=== PATIENT | male | born 1940 | race American Indian/Alaskan Native ===

== ENCOUNTER 2019-03-16 09:32 | Inpatient (IN) | payer MEDICARE ==
[~2019-03-16] VITALS: Ht 172.7 cm; Wt 75.0 kg
[~2019-03-16 09:32] MED LIST: CARV6.2553 PO; CHOL10002 PO; DULA1.5P INJ; LISI-604 PO; METF-438 PO; ROSU5TAB PO; SPIR25TA5 PO; ZOLP10TA5 PO
[2019-03-16 10:25] LABS: BASOPHILS # (AUTO) 0.1 X10'3 (0-0.2); BASOPHILS % (AUTO) 0.8 % (0-1); EOSINOPHILS # (AUTO) 0.1 X10'3 (0-0.9); EOSINOPHILS % (AUTO) 0.6 % (0-6); HEMATOCRIT 35.5 % (42.0-52.0); HEMOGLOBIN 11.8 g/dl (14.0-17.9); LYMPHOCYTES # (AUTO) 5.9 X10'3 (1.1-4.8); LYMPHOCYTES % (AUTO) 42.1 % (21-51); MEAN CORPUSCULAR HEMOGLOBIN 30.1 PG (27.0-31.0); MEAN CORPUSCULAR HGB CONC 33.1 g/dL (33.0-36.5); MEAN CORPUSCULAR VOLUME 90.9 FL (78-98); MEAN PLATELET VOLUME 6.9 FL (7.4-10.4); MONOCYTES # (AUTO) 1.5 X10'3 (0-0.9); MONOCYTES % (AUTO) 10.4 % (2-12); NEUTROPHILS # (AUTO) 6.5 X10'3 (1.8-7.7); NEUTROPHILS % (AUTO) 46.1 % (42-75); PLATELET COUNT 338 X10'3 (140-440); RED BLOOD COUNT 3.91 X10'6 (4.70-6.10); RED CELL DISTRIBUTION WIDTH 14.5 % (11.5-14.5); WHITE BLOOD COUNT 14.1 X10'3 (4.5-11.0)
[2019-03-16 10:27] LABS: PARTIAL THROMBOPLASTIN TIME 25 SECONDS (22-32)
[2019-03-16 10:29] LABS: ALANINE AMINOTRANSFERASE 25 U/L (12-78); ALBUMIN 2.7 G/DL (3.4-5.0); ALBUMIN/GLOBULIN RATIO 0.5 (1.1-1.5); ALKALINE PHOSPHATASE 108 IU/L (46-116); ASPARTATE AMINO TRANSFERASE 16 U/L (10-37); BILIRUBIN,TOTAL 0.7 MG/DL (0.1-1.0); BLOOD UREA NITROGEN 33 MG/DL (7-18); BUN/CREATININE RATIO 23.4 (5.4-32.0); CALCIUM 8.7 MG/DL (8.5-10.1); CHLORIDE 99 MMOL/L (99-107); CREATININE 1.41 MG/DL (0.60-1.10); GLUCOSE 277 MG/DL (70-104); POTASSIUM 4.8 MMOL/L (3.5-5.1); TOTAL CARBON DIOXIDE 21.4 MMOL/L (24-32); TOTAL PROTEIN 7.9 G/DL (6.4-8.2); eGFR 48 ML/MIN
[2019-03-16 10:31] LABS: ANION GAP 15 (8-16); SODIUM 135 MMOL/L (135-145)
[2019-03-16] MEDS ORDERED: iohexol 350MG/ML 100ml bottle IV ONE (10:45)
--- NOTE | 2019-03-16 12:00 | NUR ---
I CALLED LAB TO NOTIFY THEM THAT PT 0HR TROPONIN WAS NOT RESULTED 2 HOURS AFTER COLLECTION. LAB IS CURRENTLY WORKING ON IT.
[2019-03-16] MEDS ORDERED: CefTRIAXone 2gm/D5W 50ml 50 ML IV ONE (12:10)
--- NOTE | 2019-03-16 12:25 | NUR ---
Pt and spouse are aware of the need for additional lab work then antibiotic infusion.
[2019-03-16] MEDS ORDERED: morphine 2 MG/ML inj. syringe IV PRN ×2 (12:30)
[2019-03-16] MEDS ORDERED: glucagon, human recombinant 1mg kit SUBCUT PRN (12:30)
[2019-03-16] MEDS ORDERED: dextrose ORAL solution 15 GM/59 ML bottle PO PRN ×2 (12:30)
[2019-03-16] MEDS ORDERED: MESSAGE TO PHARMACY PO ONE (12:30)
[2019-03-16] MEDS ORDERED: dextrose 50%-water 50ml dispensing syringe IV PRN ×2 (12:30)
[2019-03-16] MEDS ORDERED: acetaminophen 325mg tablet PO PRN ×2 (12:30)
[2019-03-16] MEDS ORDERED: mag hydrox/Alum hydrox/simeth 30ml oral suspension PO PRN (12:30)
[2019-03-16] MEDS ORDERED: HYDROcodone/acetaminophen 5mg/325mg tablet PO PRN (12:30)
[2019-03-16] MEDS ORDERED: magnesium hydroxide 30ml (MOM) UD suspension PO PRN (12:30)
[2019-03-16] MEDS ORDERED: ondansetron/PF 4mg/2ml inj IV PRN (12:30)
[2019-03-16 12:37] LABS: D-DIMER > 35.20 MG/L FEU (0-0.50)
[2019-03-16 12:53] LABS: MAGNESIUM 2.2 MG/DL (1.5-2.4)
--- NOTE | 2019-03-16 12:54 | NUR ---
Phoning the Hospitalist regarding the elevated troponin. Second level has been collected but not resulted. He reports he reports he will assess the trending levels at q6 hour intervals. No new orders at this time.
[2019-03-16 13:07] LABS: HEMOGLOBIN A1C 7.5 % (4.5-6.2)
--- NOTE | 2019-03-16 13:08 | NUR ---
Pt's fingerstick completed, 288 prior to lunch tray. Pt assisted to sit on the side of the bed and his spouse is assisting him with eating at this time. Pt's antibiotic infusion completed.
[2019-03-16] MEDS ORDERED: enoxaparin 80mg/0.8ml syringe SUBCUT ONE (14:10)
--- NOTE | 2019-03-16 14:32 | NUR ---
Pt's spouse to obtain a medication list later today or tomorrow to update medication reconcilliation, unable to complete in the ED.
[2019-03-16] MEDS ORDERED: zolpidem 5mg tablet PO PRN (14:55)
[2019-03-16 15:00] VITALS: BP 108/51
--- NOTE | 2019-03-16 17:42 | NUR ---
Patient got up to bathroom to have diarrhea. Cautioned to call us for help as he is weak. Unable to catch him before specimen flushed. CT show distended bladder, so bladder scan done. Patient states he has not been voiding much but does not feel full. Bladder scan shows 313 cc= pt given urinal to try and void.
--- NOTE | 2019-03-16 18:16 | NUR ---
Problems reprioritized. Patient report given, questions answered & plan of care reviewed with MEGAN Grace.
--- NOTE | 2019-03-16 18:26 | NUR ---
Patient in room PCU 3021. I have received report from Kait GUZMAN and had the opportunity to ask questions and assume patient care.
[2019-03-16 19:00] VITALS: BP 119/72
[2019-03-16] MEDS: insulin Lispro (HumaLOG) vial - multi-dose SQ SCH (19:41)
[2019-03-16] MEDS ORDERED: atorvastatin 20mg tablet PO SCH (21:00)
[2019-03-16] MEDS ORDERED: insulin glargine (Lantus) pen - multi-dose SQ SCH (21:00)
[2019-03-16] MEDS: carvedilol 6.25mg tablet PO SCH (21:02)
[2019-03-16] MEDS: furosemide 20 MG/2 ML vial IV SCH (21:02)
[2019-03-16 22:00] VITALS: BP_SYST 127; BP_SYST 93; BP_DIAS 54; BP_DIAS 60
--- NOTE | 2019-03-16 22:01 | NUR ---
Asked patient if he has voided yet since he had not since he got up to this floor and he stated that he has not gone since he woke up this morning. He denies having any urge to go however and states that this is normal for him and he just does not pee very often in general. He was bladder scanned at this time and highest reading was 366mls. Offered patient the urinal and encouraged him to try to void. After a few minutes he was able to go 175mls.
[2019-03-17 02:00] VITALS: BP 107/67
[2019-03-17 05:24] LABS: ALBUMIN 2.2 G/DL (3.4-5.0); ANION GAP 10 (8-16); BLOOD UREA NITROGEN 42 MG/DL (7-18); BUN/CREATININE RATIO 27.8 (5.4-32.0); CALCIUM 8.2 MG/DL (8.5-10.1); CHLORIDE 102 MMOL/L (99-107); CREATININE 1.51 MG/DL (0.60-1.10); GLUCOSE 188 MG/DL (70-104); POTASSIUM 4.3 MMOL/L (3.5-5.1); SODIUM 136 MMOL/L (135-145); TOTAL CARBON DIOXIDE 23.7 MMOL/L (24-32); eGFR 45 ML/MIN
[2019-03-17 05:25] LABS: BASOPHILS # (AUTO) 0.1 X10'3 (0-0.2); BASOPHILS % (AUTO) 0.7 % (0-1); EOSINOPHILS # (AUTO) 0.1 X10'3 (0-0.9); EOSINOPHILS % (AUTO) 0.6 % (0-6); HEMATOCRIT 31.1 % (42.0-52.0); HEMOGLOBIN 10.3 g/dl (14.0-17.9); LYMPHOCYTES # (AUTO) 4.5 X10'3 (1.1-4.8); LYMPHOCYTES % (AUTO) 38.9 % (21-51); MEAN CORPUSCULAR HEMOGLOBIN 30.4 PG (27.0-31.0); MEAN CORPUSCULAR HGB CONC 33.2 g/dL (33.0-36.5); MEAN CORPUSCULAR VOLUME 91.5 FL (78-98); MEAN PLATELET VOLUME 7.1 FL (7.4-10.4); MONOCYTES # (AUTO) 1.3 X10'3 (0-0.9); MONOCYTES % (AUTO) 11.3 % (2-12); NEUTROPHILS # (AUTO) 5.6 X10'3 (1.8-7.7); NEUTROPHILS % (AUTO) 48.5 % (42-75); PLATELET COUNT 294 X10'3 (140-440); RED CELL DISTRIBUTION WIDTH 14.4 % (11.5-14.5); WHITE BLOOD COUNT 11.5 X10'3 (4.5-11.0)
--- NOTE | 2019-03-17 05:47 | NUR ---
[place] documentation: I have reviewed and agree with all interventions, assessments performed and documented by Samantha GUZMAN. [place] Medication Administration: For this medication-pass time frame, all medication were reviewed, dispensed, administered and documented per hospital policy by Samantha GUZMAN.
[2019-03-17 06:00] VITALS: BP_SYST 135; BP_SYST 96; BP_DIAS 53; BP_DIAS 59
--- NOTE | 2019-03-17 06:10 | NUR ---
Patient in room PCU 3021. I have received report from MEGAN Grace and had the opportunity to ask questions and assume patient care.
--- NOTE | 2019-03-17 06:12 | NUR ---
Problems reprioritized. Patient report given, questions answered & plan of care reviewed with Kait GUZMAN.
[2019-03-17] MEDS: furosemide 20 MG/2 ML vial IV SCH (07:28)
[2019-03-17] MEDS: carvedilol 6.25mg tablet PO SCH (07:28)
[2019-03-17] MEDS: enoxaparin 40mg/0.4ml syringe SUBCUT SCH ×2 (07:29→07:36)
[2019-03-17] MEDS ORDERED: enoxaparin 30mg/0.3ml syringe SUBCUT SCH ×2 (08:00)
[2019-03-17] MEDS ORDERED: vitamin D (cholecalciferol) 1,000 unit tablet PO SCH (08:00)
[2019-03-17] MEDS ORDERED: enoxaparin 40mg/0.4ml syringe SQ SCH (08:00)
[2019-03-17 08:17] LABS: TROPONIN I 0.74 NG/ML (0.0-0.05)
--- NOTE | 2019-03-17 08:22 | NUR ---
Page to Dr. Brianne Burch, RM 3026 Critical Troponin - 0.74 Thanks, Kait Ellie X [phone]
[2019-03-17] MEDS: insulin Lispro (HumaLOG) vial - multi-dose SQ SCH (08:58)
[2019-03-17 11:00] VITALS: BP 97/70
[2019-03-17 11:06] LABS: C DIFF ANTIGEN NEGATIVE (NEGATIVE); C DIFF SPECIMEN=DIARRHEA? ACCEPTABLE; C DIFFICILE TOXINS A&B NEGATIVE (Neg)
[2019-03-17] MEDS ORDERED: APIX5TAB3 PO (11:23)
[2019-03-17] MEDS ORDERED: FURO-150 PO (11:23)
--- NOTE | 2019-03-17 11:25 | NUR ---
Dr. Decker in to see patient. Patient is adamant that he wants to go home. Physician explained the dangers of doing so and that he felt he was not ready. Patient insists on going home "I don't care if I , I can't stay here". Patient advised that he would have to sign out AMA.
--- NOTE | 2019-03-17 11:45 | NUR ---
Again discussed with patient the dangers of going home at this time with his diagnoses, including . Patient states he understands insists he is going home. Signed AMA form.
--- NOTE | 2019-03-17 12:00 | NUR ---
Patient refused fingerstick. Addendum: 03/17/19 at 1304 by Kait Jimenez RN Amended: Links added.
--- NOTE | 2019-03-17 12:10 | NUR ---
Patient has refused to have his blood sugars checked and is also refusing lunch at this time. Will inform the patients nurse, Kait.
--- NOTE | 2019-03-17 14:06 | NUR ---
Reported off to MEGAN Sparrow. Patient awaiting to return with clothing.
--- NOTE | 2019-03-17 14:22 | NUR ---
DM consult, A1c is 7.5, patient given written DM education handout with verbal review and referral to outpatient DM education class on sunday. Addendum: 03/17/19 at [address] Amended: Links added.
[2019-03-18] MEDS ORDERED: lisinopril 2.5mg tablet PO SCH (08:00)
[2019-03-18] MEDS ORDERED: spironolactone 25 MG tablet PO SCH (08:30)
== END 2019-03-17 14:47 | disposition left against medical advice (07) | DRG 280 ==
LOC: ER 09:33 → PCU 3S 14:38
PROVIDERS: ADMIT Internal Medicine; ATTEND Internal Medicine
DX: I82.401 Acute embolism and thrombosis of unspecified deep veins of right lower extremity (principal); I50.23 Acute on chronic systolic (congestive) heart failure; I21.A1 Myocardial infarction type 2; E43 Unspecified severe protein-calorie malnutrition; I13.0 Hypertensive heart and chronic kidney disease with heart failure and stage 1 through stage 4 chronic kidney disease, or unspecified chronic kidney disease; I50.9 Heart failure, unspecified; Z68.25 Body mass index [BMI] 25.0-25.9, adult; Z53.21 Procedure and treatment not carried out due to patient leaving prior to being seen by health care provider; E78.5 Hyperlipidemia, unspecified; K52.9 Noninfective gastroenteritis and colitis, unspecified; N18.3 Chronic kidney disease, stage 3 (moderate); D64.9 Anemia, unspecified; E11.22 Type 2 diabetes mellitus with diabetic chronic kidney disease; I25.10 Atherosclerotic heart disease of native coronary artery without angina pectoris; I25.2 Old myocardial infarction; Z83.3 Family history of diabetes mellitus; Z82.49 Family history of ischemic heart disease and other diseases of the circulatory system; Z95.1 Presence of aortocoronary bypass graft; Z87.891 Personal history of nicotine dependence
CPT/HCPCS: 36415; 71045; 71250; 74176; 80048; 80053; 82948; 83036; 83605; 83735; 83880; 84145; 84484; 85025; 85379; 85610; 85730; 87040; 87045; 87046; 87081; 87324; 87449; 89055; 93005; 93306; 93970; 96365; 96372; 99285; G0378; J0696; J1650; J1815; J1940; Q9967

== ENCOUNTER 2019-03-18 16:50 | Inpatient (IN) | payer MEDICARE ==
[~2019-03-18] VITALS: Ht 170.2 cm; Wt 75.7 kg
[~2019-03-18 16:50] MED LIST changes: +APIX5TAB3 PO; +FURO-150 PO
[2019-03-18] MEDS ORDERED: normal saline 1000ML IV soln IV ONE (17:00)
[2019-03-18 17:19] LABS: BASOPHILS % (AUTO) 0.2 % (0-1); EOSINOPHILS % (AUTO) 0 % (0-6); HEMATOCRIT 36.4 % (42.0-52.0); HEMOGLOBIN 11.8 g/dl (14.0-17.9); LYMPHOCYTES # (AUTO) 1.7 X10'3 (1.1-4.8); LYMPHOCYTES % (AUTO) 16.9 % (21-51); MEAN CORPUSCULAR HEMOGLOBIN 29.8 PG (27.0-31.0); MEAN CORPUSCULAR HGB CONC 32.4 g/dL (33.0-36.5); MEAN CORPUSCULAR VOLUME 91.9 FL (78-98); MEAN PLATELET VOLUME 7.2 FL (7.4-10.4); MONOCYTES # (AUTO) 0.7 X10'3 (0-0.9); MONOCYTES % (AUTO) 7.2 % (2-12); NEUTROPHILS # (AUTO) 7.5 X10'3 (1.8-7.7); NEUTROPHILS % (AUTO) 75.7 % (42-75); PLATELET COUNT 320 X10'3 (140-440); RED BLOOD COUNT 3.96 X10'6 (4.70-6.10); RED CELL DISTRIBUTION WIDTH 14.6 % (11.5-14.5)
[2019-03-18] MEDS ORDERED: midazolam 100mg in NS 100ml 100 ML IV PRN ×2 (17:20→18:57)
--- NOTE | 2019-03-18 17:30 | NUR ---
PT HAD X-RAY FOR INTUBATION PLACEMENT CONFIRMATION AND WAS READ BY MD GALDAMEZ AND VERIFIED IN PLACE. PT THEN TAKEN TO CT WITH MEGAN LIZARRAGA AND RT.
[2019-03-18 17:31] LABS: PARTIAL THROMBOPLASTIN TIME 26 SECONDS (22-32)
[2019-03-18 17:32] LABS: AMMONIA < 10 UMOL/L (11-32)
[2019-03-18 17:35] LABS: ALANINE AMINOTRANSFERASE 73 U/L (12-78); ALBUMIN 2.5 G/DL (3.4-5.0); ALBUMIN/GLOBULIN RATIO 0.5 (1.1-1.5); ALKALINE PHOSPHATASE 157 IU/L (46-116); ANION GAP 19 (8-16); ASPARTATE AMINO TRANSFERASE 75 U/L (10-37); BILIRUBIN,TOTAL 0.8 MG/DL (0.1-1.0); BLOOD UREA NITROGEN 60 MG/DL (7-18); BUN/CREATININE RATIO 34.7 (5.4-32.0); CALCIUM 8.3 MG/DL (8.5-10.1); CHLORIDE 99 MMOL/L (99-107); CREATININE 1.73 MG/DL (0.60-1.10); GLUCOSE 432 MG/DL (70-104); POTASSIUM 4.7 MMOL/L (3.5-5.1); SODIUM 134 MMOL/L (135-145); TOTAL CARBON DIOXIDE 16.1 MMOL/L (24-32); TOTAL PROTEIN 7.4 G/DL (6.4-8.2); eGFR 38 ML/MIN
[2019-03-18 17:36] LABS: LACTIC SEPSIS 3.4 MMOL/L (0.4-2.0)
[2019-03-18 17:38] LABS: ETHANOL < 0.010 GM/DL (0.0-0.010)
[2019-03-18 17:42] LABS: TROPONIN I 3.32 NG/ML (0.0-0.05)
[2019-03-18] MEDS ORDERED: fentaNYL/PF 50MCG/1 ML 2ML syringe ONE (17:48)
[2019-03-18] MEDS ORDERED: midazolam 2 mg/2 ml injection ONE (17:48)
[2019-03-18] MEDS ORDERED: iohexol 350 MG/1 ML 200ml bottle ONE (17:48)
[2019-03-18] MEDS ORDERED: LIDOcaine 1% (10mg/ml)w/preservative injection 20ml MDV ONE (17:48)
[2019-03-18] MEDS ORDERED: heparin 1,000unit/ml 10ml vial 10 ML ONE (17:48)
[2019-03-18] MEDS: FENTANYL-0.9 % NACL/PF 100 ML IV PRN (17:53)
--- NOTE | 2019-03-18 17:54 | NUR ---
RECEIVED VO THAT PT CLEARED OF CT AND INSTRUCTED TO ADMINISTER HEPARIN BOLUS PER CARDIAC PROTOCOL BY DR. GALDAMEZ. ARVIND HIGUERA CHECKED WITH MEGAN LIZARRAGA AT [facility] AND PT BOLUSED WITH 4,OOO UNITS HEPARIN IV. HEPARIN DRIP WAS NOT INITATED PT THEN TAKEN BY GYROSCOPIC INSTRUMENT TESTER FOR PROCEEDURE BUT HEPARIN BAG AND TUBING SENT UP WITH PT, VERCED AND FENTANYL DRIP INFUSING. PTS WAS GIVEN PTS UPPER DENTURE (PT WITHOUT BOTTOM PLATE) AND GIVEN PTS CLOTHING. FAMILY WAS UPDATED ON PROCEEDURES AND WALKED UP TO WAITING ROOM ON FLOOR 2.
[2019-03-18] MEDS ORDERED: iohexol 350 MG/ML 50ML vial IV ONE (18:22)
[2019-03-18] MEDS ORDERED: FENTANYL-0.9 % NACL/PF 100 ML IV PRN (18:57)
[2019-03-18 19:00] VITALS: BP 104/63
[2019-03-18] MEDS ORDERED: potassium CL 10mEq/100ml bag 100 ML IV PRN ×2 (19:00)
[2019-03-18] MEDS ORDERED: midazolam 2 mg/2 ml injection IV ONE (19:00)
[2019-03-18] MEDS ORDERED: acetaminophen 325mg tablet PO PRN ×2 (19:00)
[2019-03-18] MEDS ORDERED: potassium Cl 20 mEq SR tablet PO PRN ×2 (19:00)
[2019-03-18] MEDS ORDERED: potassium Cl 20mEq/100mL bag 100 ML IV PRN ×2 (19:00)
[2019-03-18] MEDS ORDERED: ipratropium/albuterol 3ml nebule NEB PRN (19:00)
[2019-03-18] MEDS ORDERED: fentaNYL/PF 50MCG/1 ML 2ML syringe IV PRN (19:00)
[2019-03-18] MEDS ORDERED: ondansetron/PF 4mg/2ml inj IV PRN (19:00)
[2019-03-18] MEDS ORDERED: glucagon, human recombinant 1mg kit SUBCUT PRN (19:10)
[2019-03-18] MEDS ORDERED: dextrose 50%-water 50ml dispensing syringe IV PRN ×2 (19:10)
[2019-03-18] MEDS ORDERED: MESSAGE TO PHARMACY PO ONE (19:10)
[2019-03-18] MEDS ORDERED: dextrose ORAL solution 15 GM/59 ML bottle PO PRN ×2 (19:10)
[2019-03-18 19:11] LABS: ABG BASE EXCESS -14.6 mmol/L (-2.0-3.0); ABG HCO3 14.3 mmol/L (22.0-26.0); ABG OXYGEN SATURATION 86.7 % (95-98); ABG PCO2 (T) 45.4 mmHg (35.0-45.0); ABG PH (T) 7.116 (7.350-7.450); ABG PO2 (T) 73.3 mmHg (83-108); ALLEN'S TEST Positive; FCOHb 0.6 % (0.5-1.5); FMetHb 0.2 % (0.3-1.12); MINUTE VOLUME 8 L/min; PATIENT TEMPERATURE 36.9; PEEP 5 cm H2O; RESPIRATORY RATE 16 b/min; RESPIRATORY RATE (OBSERVED) 16 b/min; TIDAL VOLUME 500 mL; TOTAL HEMOGLOBIN 12.4 G/dl (14.0-17.9)
--- NOTE | 2019-03-18 19:15 | NUR ---
Patient in room CICU 2010. I have received report from TYING IN MACHINE OPERATOR and had the opportunity to ask questions and assume patient care. Patient came from computer lab aide in CICU bed with computer lab aide crew at bedside. Instructed that Noodle Catalyst Maker is to take over care of patient. Connected patient to CICU monitors and assessed patient. Dr Rodriguez at bedside to assess patient and place lines. New orders received.
[2019-03-18] MEDS ORDERED: acetaminophen 325mg/10.15ml oral unit dose solution OGT PRN (19:45)
[2019-03-18] MEDS ORDERED: dextrose ORAL solution 15 GM/59 ML bottle OGT PRN ×2 (19:47)
[2019-03-18] MEDS ORDERED: potassium Cl 20 mEq SR tablet OGT PRN ×2 (19:48→19:49)
[2019-03-18 20:00] VITALS: BP 107/64
[2019-03-18] MEDS ORDERED: apixaban 5mg tablet PO SCH (20:00)
[2019-03-18] MEDS ORDERED: docusate sod 100mg capsule PO SCH (20:00)
[2019-03-18] MEDS: ipratropium/albuterol 3ml nebule NEB SCH ×2 (20:13→23:19)
[2019-03-18 20:31] LABS: OXYGEN SATURATION (MIXED VEN) 48.6 % (60-80); PO2 MIXED VENOUS (TEMP COR) 36.3 mmHg (35-46)
[2019-03-18] MEDS: DOBUTamine-DoBUTrex 500mg/D5W 250 ML IV SCH (20:37)
[2019-03-18] MEDS: docusate sodium 100mg/10ml UD cup OGT SCH (20:46)
[2019-03-18] MEDS: famotidine/PF 10 mg/ml inj IV SCH (20:46)
[2019-03-18] MEDS: normal saline 1000ml 1,000 ML IV SCH (20:48)
[2019-03-18] MEDS: apixaban 5mg tablet OGT SCH (20:50)
[2019-03-18] MEDS: vancomycin/NS 1 GM ADD-VANTAGE 250 ML IV SCH (20:59)
[2019-03-18 21:00] VITALS: BP 108/69
[2019-03-18] MEDS ORDERED: atorvastatin 20mg tablet PO SCH (21:00)
[2019-03-18] MEDS: insulin Lispro (HumaLOG) vial - multi-dose SQ SCH (21:30)
[2019-03-18] MEDS: insulin glargine (Lantus) pen - multi-dose SQ SCH (21:32)
[2019-03-18 22:00] VITALS: BP 98/61
[2019-03-18 22:16] LABS: PO2 MIXED VENOUS (TEMP COR) 44.5 mmHg (35-46)
[2019-03-18 22:47] LABS: CLARITY,URINE CLEAR (Clear); COLOR,URINE YELLOW (Yellow); GLUCOSE, URINE >=1000 mg/dl (Neg); KETONES,URINE NEGATIVE (Neg); LEUKOCYTE ESTERASE ,URINE NEGATIVE (Neg); NITRITES, URINE NEGATIVE (Neg); OCCULT BLOOD,URINE MODERATE (Neg); PROTEIN,URINE TRACE mg/dl (Neg)
[2019-03-18 22:52] LABS: SODIUM,URINE RANDOM < 15 MEQ/L; UA COLLECTION TYPE FOLEY CATH
[2019-03-18 22:55] LABS: URINE AMPHETAMINE SCREEN NEGATIVE (Neg); URINE BARBITUATE SCREEN NEGATIVE (Neg); URINE BENZODIAZEPINES SCREEN POSITIVE (Neg); URINE CANNABINOID SCREEN NEGATIVE (Neg); URINE COCAINE SCREEN NEGATIVE (Neg); URINE METHADONE SCREEN NEGATIVE (Neg); URINE OPIATE SCREEN NEGATIVE (Neg); URINE PHENCYCLIDINE SCREEN NEGATIVE (Neg)
[2019-03-18 22:57] LABS: BACTERIA,URINE FEW /HPF (Neg); RBC,URINE 0-2 /HPF (0-2); SQUAMOUS EPITHELIAL CELL,UR FEW /LPF (FEW); WBC,URINE 0-4 /HPF (0-4)
[2019-03-18 23:00] VITALS: BP 84/51
[2019-03-18 23:13] LABS: UA EOSINOPHILS NO EOS /HPF
[2019-03-19] VITALS (24 sets, daily range): BP systolic 78–93; BP diastolic 50–62
[2019-03-19] MEDS ORDERED: cefepime 1GM in D5W 50mL 50 ML IV SCH
[2019-03-19] MEDS ORDERED: normal saline 250ml IV soln 250 ML IV ONE (00:40)
[2019-03-19] MEDS: NORepinephrine 8mg/ 250ml NS 250 ML IV SCH ×2 (01:45→22:58)
[2019-03-19] MEDS: insulin Lispro (HumaLOG) vial - multi-dose SQ SCH ×2 (01:48→08:27)
[2019-03-19 02:26] LABS: BASOPHILS % (AUTO) 0.1 % (0-1); EOSINOPHILS % (AUTO) 0 % (0-6); HEMATOCRIT 31.2 % (42.0-52.0); HEMOGLOBIN 9.9 g/dl (14.0-17.9); LYMPHOCYTES # (AUTO) 2.2 X10'3 (1.1-4.8); MEAN CORPUSCULAR HEMOGLOBIN 29.6 PG (27.0-31.0); MEAN CORPUSCULAR HGB CONC 31.8 g/dL (33.0-36.5); MEAN CORPUSCULAR VOLUME 93.1 FL (78-98); MEAN PLATELET VOLUME 7.2 FL (7.4-10.4); MONOCYTES # (AUTO) 0.9 X10'3 (0-0.9); MONOCYTES % (AUTO) 8.1 % (2-12); NEUTROPHILS # (AUTO) 8.5 X10'3 (1.8-7.7); NEUTROPHILS % (AUTO) 72.8 % (42-75); PLATELET COUNT 251 X10'3 (140-440); RED BLOOD COUNT 3.35 X10'6 (4.70-6.10); RED CELL DISTRIBUTION WIDTH 14.7 % (11.5-14.5); WHITE BLOOD COUNT 11.7 X10'3 (4.5-11.0)
[2019-03-19] MEDS: ipratropium/albuterol 3ml nebule NEB SCH ×6 (02:41→23:26)
[2019-03-19 02:44] LABS: ALANINE AMINOTRANSFERASE 621 U/L (12-78); ALBUMIN 1.9 G/DL (3.4-5.0); ALBUMIN/GLOBULIN RATIO 0.5 (1.1-1.5); ALKALINE PHOSPHATASE 129 IU/L (46-116); ANION GAP 12 (8-16); ASPARTATE AMINO TRANSFERASE 793 U/L (10-37); BILIRUBIN,TOTAL 0.5 MG/DL (0.1-1.0); BLOOD UREA NITROGEN 65 MG/DL (7-18); BUN/CREATININE RATIO 32.3 (5.4-32.0); CALCIUM 7.3 MG/DL (8.5-10.1); CHLORIDE 107 MMOL/L (99-107); CREATININE 2.01 MG/DL (0.60-1.10); GLUCOSE 357 MG/DL (70-104); MAGNESIUM 2.6 MG/DL (1.5-2.4); PHOSPHORUS 6.6 MG/DL (2.3-4.5); POTASSIUM 4.3 MMOL/L (3.5-5.1); SODIUM 139 MMOL/L (135-145); TOTAL CARBON DIOXIDE 20.5 MMOL/L (24-32); eGFR 32 ML/MIN
[2019-03-19 02:50] LABS: ABG BASE EXCESS -9.2 mmol/L (-2.0-3.0); ABG HCO3 16.1 mmol/L (22.0-26.0); ABG OXYGEN SATURATION 99.1 % (95-98); ABG PCO2 (T) 32.8 mmHg (35.0-45.0); ABG PH (T) 7.309 (7.350-7.450); ABG PO2 (T) 187.8 mmHg (83-108); ALLEN'S TEST Positive; FCOHb 0.2 % (0.5-1.5); FMetHb 0.1 % (0.3-1.12); FO2Hb 98.8 % (94-100); MINUTE VOLUME 12 L/min; PATIENT TEMPERATURE 36.9; PEEP 5 cm H2O; RESPIRATORY RATE 20 b/min; RESPIRATORY RATE (OBSERVED) 24 b/min; TIDAL VOLUME 400 mL; TOTAL HEMOGLOBIN 11.3 G/dl (14.0-17.9)
--- NOTE | 2019-03-19 06:38 | NUR ---
Patient in room CICU 2010. I have received report from MEGAN Granados and had the opportunity to ask questions and assume patient care.
[2019-03-19] MEDS: famotidine/PF 10 mg/ml inj IV SCH ×2 (07:56→20:25)
[2019-03-19] MEDS: cefepime 1GM/NS ADD-VANTAGE 100 ML IV SCH ×3 (07:56→23:54)
[2019-03-19] MEDS: docusate sodium 100mg/10ml UD cup OGT SCH ×2 (07:56→20:25)
[2019-03-19] MEDS: apixaban 5mg tablet OGT SCH ×2 (07:57→20:25)
[2019-03-19] MEDS: atorvastatin 20mg tablet OGT SCH (07:57)
[2019-03-19] MEDS ORDERED: vitamin D (cholecalciferol) 1,000 unit tablet PO SCH (08:00)
[2019-03-19] MEDS ORDERED: apixaban 5mg tablet PO SCH (08:00)
[2019-03-19] MEDS: lactobacillus rhamnosus 10,000 MMU CELLS/CAPSULE PO SCH ×2 (08:02→20:25)
[2019-03-19] MEDS: normal saline 1000ml 1,000 ML IV SCH ×2 (08:17→20:59)
--- NOTE | 2019-03-19 11:02 | NUR ---
Tube feeding consult received. Patient is intubated and sedated presenting with respiratory arrest and ST elevation VA. Per H&P patient has pulmonary infiltrates. left AMA yesterday. Pt reports 35-40 lb weight loss over three months accompanied with diarrhea and increasing weakness. Last documented weight from two years ago is consistent with patient's current weight. No diarrhea today. Will continue to monitor. Recommend: 1. Continuous tube feeding via OG tube with Vital AF at goal rate of 75 ml/hr will provide total volume of 1800 ml, 2160 cals, 135 g, 1460 ml. Start at 20 ml/hr and advance by 20 ml q 8 hours to goal. 2. Prealbumin q Sunday and 3. Daily weights 4. Additional water flush 130 ml q 4 hours 5. Continue bowel care 6. When extubated advance diet as medically indicated to carb controlled, heart healthy Addendum: 03/19/19 at [address] Amended: Links added.
[2019-03-19] MEDS ORDERED: insulin regular, human vial - multi-dose SQ SCH (12:15)
[2019-03-19] MEDS: DOBUTamine-DoBUTrex 500mg/D5W 250 ML IV SCH (14:29)
[2019-03-19] MEDS ORDERED: furosemide 40mg/4ml inj IV ONE (14:35)
[2019-03-19] MEDS: FENTANYL-0.9 % NACL/PF 100 ML IV PRN (18:07)
--- NOTE | 2019-03-19 18:37 | NUR ---
received report from jaime matthews and ladarius matthews no questions or concerns after SBAR
[2019-03-19] MEDS: insulin regular, human vial - multi-dose SQ SCH (20:22)
[2019-03-19] MEDS: insulin glargine (Lantus) pen - multi-dose SQ SCH (20:23)
[2019-03-19] MEDS: furosemide 40mg/4ml inj IV SCH (20:25)
[2019-03-19] MEDS: mineral oil/petrolatum ophthal oint EACHEYE SCH (20:36)
[2019-03-19] MEDS: vancomycin/NS 1 GM ADD-VANTAGE 250 ML IV SCH (20:59)
--- NOTE | 2019-03-19 21:57 | NUR ---
PATIENT SUPINE IN BED COVERS ON EYES CLOSED RR EVEN UN LABORED NO OBSERVABLE S/S OF ACUTE STRESS AT THIS TIME
[2019-03-20] VITALS (24 sets, daily range): BP systolic 80–113; BP diastolic 42–62
[2019-03-20] MEDS: mineral oil/petrolatum ophthal oint EACHEYE SCH ×4 (01:50→20:41)
[2019-03-20] MEDS: insulin regular, human vial - multi-dose SQ SCH ×4 (01:53→20:45)
[2019-03-20] MEDS: ipratropium/albuterol 3ml nebule NEB SCH ×6 (03:15→22:57)
[2019-03-20 03:31] LABS: ABG BASE EXCESS -9.1 mmol/L (-2.0-3.0); ABG HCO3 15.2 mmol/L (22.0-26.0); ABG OXYGEN SATURATION 98.2 % (95-98); ABG PCO2 (T) 28.3 mmHg (35.0-45.0); ABG PH (T) 7.349 (7.350-7.450); ALLEN'S TEST Positive; FCOHb 0.3 % (0.5-1.5); FMetHb 0.1 % (0.3-1.12); FO2Hb 97.8 % (94-100); PEEP 5 cm H2O; RESPIRATORY RATE 20 b/min; RESPIRATORY RATE (OBSERVED) 23 b/min; TIDAL VOLUME 400 mL; TOTAL HEMOGLOBIN 10.6 G/dl (14.0-17.9)
[2019-03-20 03:53] LABS: BASOPHILS % (AUTO) 0.2 % (0-1); EOSINOPHILS % (AUTO) 0.2 % (0-6); HEMOGLOBIN 9.5 g/dl (14.0-17.9); LYMPHOCYTES # (AUTO) 2.3 X10'3 (1.1-4.8); LYMPHOCYTES % (AUTO) 17.1 % (21-51); MEAN CORPUSCULAR HEMOGLOBIN 29.8 PG (27.0-31.0); MEAN CORPUSCULAR HGB CONC 31.8 g/dL (33.0-36.5); MEAN CORPUSCULAR VOLUME 93.5 FL (78-98); MEAN PLATELET VOLUME 7.6 FL (7.4-10.4); MONOCYTES # (AUTO) 0.8 X10'3 (0-0.9); MONOCYTES % (AUTO) 5.9 % (2-12); NEUTROPHILS # (AUTO) 10.2 X10'3 (1.8-7.7); NEUTROPHILS % (AUTO) 76.6 % (42-75); PLATELET COUNT 213 X10'3 (140-440); RED BLOOD COUNT 3.21 X10'6 (4.70-6.10); RED CELL DISTRIBUTION WIDTH 15.1 % (11.5-14.5); WHITE BLOOD COUNT 13.3 X10'3 (4.5-11.0)
[2019-03-20 04:20] LABS: ALANINE AMINOTRANSFERASE 510 U/L (12-78); ALBUMIN 1.8 G/DL (3.4-5.0); ALBUMIN/GLOBULIN RATIO 0.5 (1.1-1.5); ALKALINE PHOSPHATASE 120 IU/L (46-116); ANION GAP 13 (8-16); ASPARTATE AMINO TRANSFERASE 327 U/L (10-37); BILIRUBIN,TOTAL 0.5 MG/DL (0.1-1.0); BLOOD UREA NITROGEN 72 MG/DL (7-18); BUN/CREATININE RATIO 27.9 (5.4-32.0); CALCIUM 7.1 MG/DL (8.5-10.1); CHLORIDE 109 MMOL/L (99-107); CREATININE 2.58 MG/DL (0.60-1.10); GLUCOSE 192 MG/DL (70-104); MAGNESIUM 2.4 MG/DL (1.5-2.4); PHOSPHORUS 5.2 MG/DL (2.3-4.5); SODIUM 140 MMOL/L (135-145); TOTAL CARBON DIOXIDE 17.8 MMOL/L (24-32); TOTAL PROTEIN 5.8 G/DL (6.4-8.2); eGFR 24 ML/MIN
--- NOTE | 2019-03-20 06:28 | NUR ---
sbar to Evan GUZMAN and Perfecto GUZMAN no questions or concerns after assuming care
[2019-03-20] MEDS: atorvastatin 20mg tablet OGT SCH (07:37)
[2019-03-20] MEDS: famotidine/PF 10 mg/ml inj IV SCH ×2 (07:37→20:34)
[2019-03-20] MEDS: docusate sodium 100mg/10ml UD cup OGT SCH ×2 (07:37→20:34)
[2019-03-20] MEDS: furosemide 40mg/4ml inj IV SCH ×2 (07:38→20:34)
[2019-03-20] MEDS: vitamin D (cholecalciferol) 1,000 unit tablet OGT SCH (07:38)
[2019-03-20] MEDS: lactobacillus rhamnosus 10,000 MMU CELLS/CAPSULE PO SCH ×2 (07:38→20:34)
[2019-03-20] MEDS: apixaban 5mg tablet OGT SCH ×2 (07:38→20:34)
[2019-03-20] MEDS: cefepime 1GM/NS ADD-VANTAGE 100 ML IV SCH ×2 (07:43→17:02)
[2019-03-20] MEDS: acetaminophen 325mg/10.15ml oral unit dose solution OGT PRN (14:40)
--- NOTE | 2019-03-20 15:21 | NUR ---
dr Simon in room placing art line to R femoral. placed at 1521. attempted to place in Left radial but was unsuccessful.
[2019-03-20] MEDS ORDERED: albumin (human) 25% 100 ML IV solution IV ONE (16:00)
[2019-03-20] MEDS: DOBUTamine-DoBUTrex 500mg/D5W 250 ML IV SCH (17:00)
[2019-03-20] MEDS: FENTANYL-0.9 % NACL/PF 100 ML IV PRN (17:01)
[2019-03-20] MEDS: NORepinephrine 8mg/ 250ml NS 250 ML IV SCH ×2 (17:01→21:08)
[2019-03-20] MEDS ORDERED: DOBUTamine-DoBUTrex 500mg/D5W 250 ML IV SCH (19:20)
[2019-03-20] MEDS: vancomycin/NS 1 GM ADD-VANTAGE 250 ML IV SCH (20:34)
[2019-03-20] MEDS: insulin glargine (Lantus) pen - multi-dose SQ SCH (20:46)
[2019-03-21] VITALS (16 sets, daily range): BP systolic 94–119; BP diastolic 43–64
[2019-03-21] MEDS: mineral oil/petrolatum ophthal oint EACHEYE SCH ×3 (02:52→14:00)
[2019-03-21] MEDS: DOBUTamine-DoBUTrex 500mg/D5W 250 ML IV SCH (03:19)
[2019-03-21] MEDS: FENTANYL-0.9 % NACL/PF 100 ML IV PRN (03:20)
[2019-03-21] MEDS: NORepinephrine 8mg/ 250ml NS 250 ML IV SCH (03:20)
[2019-03-21] MEDS: ipratropium/albuterol 3ml nebule NEB SCH ×4 (03:32→15:00)
[2019-03-21 03:46] LABS: ABG BASE EXCESS -10.3 mmol/L (-2.0-3.0); ABG PCO2 (T) 27.5 mmHg (35.0-45.0); ABG PH (T) 7.329 (7.350-7.450); ABG PO2 (T) 79.2 mmHg (83-108); FCOHb 0.3 % (0.5-1.5); FMetHb 0.1 % (0.3-1.12); FO2Hb 92.6 % (94-100); MINUTE VOLUME 14 L/min; PATIENT TEMPERATURE 38.5; PEEP 5 cm H2O; RESPIRATORY RATE (OBSERVED) 20 b/min; TOTAL HEMOGLOBIN 9.8 G/dl (14.0-17.9)
[2019-03-21 05:29] LABS: BASOPHILS % (AUTO) 0.1 % (0-1); EOSINOPHILS % (AUTO) 0.2 % (0-6); HEMATOCRIT 27.4 % (42.0-52.0); HEMOGLOBIN 9.1 g/dl (14.0-17.9); LYMPHOCYTES # (AUTO) 1.8 X10'3 (1.1-4.8); LYMPHOCYTES % (AUTO) 14.9 % (21-51); MEAN CORPUSCULAR HEMOGLOBIN 30.5 PG (27.0-31.0); MEAN CORPUSCULAR HGB CONC 33.3 g/dL (33.0-36.5); MEAN CORPUSCULAR VOLUME 91.8 FL (78-98); MEAN PLATELET VOLUME 7.6 FL (7.4-10.4); MONOCYTES # (AUTO) 0.8 X10'3 (0-0.9); MONOCYTES % (AUTO) 6.6 % (2-12); NEUTROPHILS # (AUTO) 9.3 X10'3 (1.8-7.7); NEUTROPHILS % (AUTO) 78.2 % (42-75); PLATELET COUNT 202 X10'3 (140-440); RED BLOOD COUNT 2.98 X10'6 (4.70-6.10); RED CELL DISTRIBUTION WIDTH 15.2 % (11.5-14.5); WHITE BLOOD COUNT 11.9 X10'3 (4.5-11.0)
[2019-03-21 05:35] LABS: ALANINE AMINOTRANSFERASE 434 U/L (12-78); ALBUMIN 1.9 G/DL (3.4-5.0); ALBUMIN/GLOBULIN RATIO 0.5 (1.1-1.5); ALKALINE PHOSPHATASE 121 IU/L (46-116); ANION GAP 17 (8-16); ASPARTATE AMINO TRANSFERASE 221 U/L (10-37); BILIRUBIN,TOTAL 0.6 MG/DL (0.1-1.0); BLOOD UREA NITROGEN 84 MG/DL (7-18); BUN/CREATININE RATIO 22.3 (5.4-32.0); CALCIUM 7.2 MG/DL (8.5-10.1); CHLORIDE 110 MMOL/L (99-107); CREATININE 3.76 MG/DL (0.60-1.10); GLUCOSE 56 MG/DL (70-104); MAGNESIUM 2.3 MG/DL (1.5-2.4); PHOSPHORUS 4.5 MG/DL (2.3-4.5); SODIUM 141 MMOL/L (135-145); TOTAL PROTEIN 5.9 G/DL (6.4-8.2); eGFR 16 ML/MIN
[2019-03-21 06:10] LABS: TOTAL CARBON DIOXIDE 13.8 MMOL/L (24-32)
[2019-03-21] MEDS: docusate sodium 100mg/10ml UD cup OGT SCH (08:26)
[2019-03-21] MEDS: famotidine/PF 10 mg/ml inj IV SCH (08:28)
[2019-03-21] MEDS: apixaban 5mg tablet OGT SCH (08:28)
[2019-03-21] MEDS: cefepime 1GM/NS ADD-VANTAGE 100 ML IV SCH ×3 (08:28→16:00)
[2019-03-21] MEDS: lactobacillus rhamnosus 10,000 MMU CELLS/CAPSULE PO SCH (08:28)
[2019-03-21] MEDS: vitamin D (cholecalciferol) 1,000 unit tablet OGT SCH (08:28)
[2019-03-21] MEDS: furosemide 40mg/4ml inj IV SCH (11:47)
[2019-03-21] MEDS: acetaminophen 325mg/10.15ml oral unit dose solution OGT PRN (12:15)
[2019-03-21] MEDS: insulin regular, human vial - multi-dose SQ SCH (14:17)
[2019-03-21] MEDS ORDERED: LORazepam 2 mg/ml vial IV PRN (14:45)
[2019-03-21] MEDS ORDERED: morphine 2 MG/ML inj. syringe IV PRN (14:45)
--- NOTE | 2019-03-21 15:15 | NUR ---
Patient extubated to comfort care per MD order. Monitor placed on privacy mode and IV drips turned off. Patient placed on 2LNC. immediately appears uncomfortable and struggling to breath.
[2019-03-21] MEDS ORDERED: morphine 10mg/ml inj. IV PRN ×2 (15:20)
--- NOTE | 2019-03-21 15:48 | NUR ---
Patient is comfort care, nutrition therapies will be stopped. Will follow per protocol. Addendum: 03/21/19 at [address] Amended: Links added.
--- NOTE | 2019-03-21 16:31 | NUR ---
RN IS TO DOCUMENT YES TO ALL APPLICABLE AREAS Pronouncement of : Yes 1. Time Physician Notified: 1634 2. Date of : 03/21/19 3. Time of : 1629 4. DNR/Withdraw life support documented: Yes 5. Monitor strip has been placed on chart:Yes 6. Assessment process is of one-minute duration and includes following criteria: a) Patient is unresponsive to all stimuli: Yes b) Pupils fixed and non-reactive:Yes c) Auscultation of precordium reveals absence of heart tones:Yes d) Auscultation of lungs reveals absence of breath sounds:Yes e) Absence of blood pressure / all vital signs:yes f) QRS complexes are not present on monitor / EKG strip:Yes g) Pacer spikes without capture:N/A 4. Comments: Confirmed by two RN's
--- NOTE | 2019-03-21 17:33 | NUR ---
I have reviewed and agree with all medications administered and interventions performed by ORNAMENTAL IRON WORKER HELPER Student Sherita Lewis.
[2019-03-21] MEDS ORDERED: VANCOMYCIN LEVEL IV ONE (20:30)
== END 2019-03-21 16:30 | disposition expired | DRG 871 ==
LOC: ER 16:50 → CICU 2S 19:16
PROVIDERS: ADMIT Internal Medicine Critical Care Medicine
PROC: 5A1945Z Respiratory Ventilation, 24-96 Consecutive Hours (ICD-10-PCS; principal; 2019-03-18)
PROC: 0BH17EZ Insertion of Endotracheal Airway into Trachea, Via Natural or Artificial Opening (ICD-10-PCS; 2019-03-18)
PROC: 02HV33Z Insertion of Infusion Device into Superior Vena Cava, Percutaneous Approach (ICD-10-PCS; 2019-03-18)
PROC: 4A023N7 Measurement of Cardiac Sampling and Pressure, Left Heart, Percutaneous Approach (ICD-10-PCS; 2019-03-18)
PROC: B2111ZZ Fluoroscopy of Multiple Coronary Arteries using Low Osmolar Contrast (ICD-10-PCS; 2019-03-18)
PROC: B2151ZZ Fluoroscopy of Left Heart using Low Osmolar Contrast (ICD-10-PCS; 2019-03-18)
PROC: B3101ZZ Fluoroscopy of Thoracic Aorta using Low Osmolar Contrast (ICD-10-PCS; 2019-03-18)
PROC: B2181ZZ Fluoroscopy of Left Internal Mammary Bypass Graft using Low Osmolar Contrast (ICD-10-PCS; 2019-03-18)
PROC: B2131ZZ Fluoroscopy of Multiple Coronary Artery Bypass Grafts using Low Osmolar Contrast (ICD-10-PCS; 2019-03-18)
PROC: 04HY32Z Insertion of Monitoring Device into Lower Artery, Percutaneous Approach (ICD-10-PCS; 2019-03-20)
PROC: 4A133B1 Monitoring of Arterial Pressure, Peripheral, Percutaneous Approach (ICD-10-PCS; 2019-03-20)
PROC: 4A133J1 Monitoring of Arterial Pulse, Peripheral, Percutaneous Approach (ICD-10-PCS; 2019-03-20)
DX: A41.9 Sepsis, unspecified organism (principal); I21.3 ST elevation (STEMI) myocardial infarction of unspecified site; J96.01 Acute respiratory failure with hypoxia; G93.41 Metabolic encephalopathy; I50.23 Acute on chronic systolic (congestive) heart failure; N17.9 Acute kidney failure, unspecified; I13.0 Hypertensive heart and chronic kidney disease with heart failure and stage 1 through stage 4 chronic kidney disease, or unspecified chronic kidney disease; E87.0 Hyperosmolality and hypernatremia; E11.22 Type 2 diabetes mellitus with diabetic chronic kidney disease; E11.65 Type 2 diabetes mellitus with hyperglycemia; I25.5 Ischemic cardiomyopathy; N18.9 Chronic kidney disease, unspecified; R57.0 Cardiogenic shock; Z51.5 Encounter for palliative care; E86.9 Volume depletion, unspecified; E78.5 Hyperlipidemia, unspecified; I25.10 Atherosclerotic heart disease of native coronary artery without angina pectoris; I25.2 Old myocardial infarction; Z85.51 Personal history of malignant neoplasm of bladder; Z86.718 Personal history of other venous thrombosis and embolism; Z86.73 Personal history of transient ischemic attack (TIA), and cerebral infarction without residual deficits; Z87.891 Personal history of nicotine dependence; Z95.1 Presence of aortocoronary bypass graft; Z95.5 Presence of coronary angioplasty implant and graft
CPT/HCPCS: 31500; 36415; 36569; 36600; 70450; 71045; 76937; 80053; 80305; 80320; 81001; 82140; 82570; 82803; 82810; 82948; 83605; 83735; 83880; 84100; 84134; 84145; 84300; 84484; 85018; 85025; 85610; 85730; 87040; 87070; 87088; 87207; 93005; 93308; 93459; 93567; 94002; 94003; 94640; 94760; 99152; 99153; 99291; A6258; C1760; C1769; G0378; J0692; J1250; J1644; J1815; J1940; J2001; J2060; J2250; J2270; J3010; J3370; J3490; J7050; P9047; Q9967